=== PATIENT | male | born 1965 | race Two or more races ===

== ENCOUNTER 2017-12-14 09:38 | Emergency (ER) | payer MEDICAID ==
[~2017-12-14] VITALS: Ht 177.8 cm; Wt 88.9 kg
[~2017-12-14 09:38] MED LIST: INSLANTI SC; INSLISPI SC
[2017-12-14 10:13] LABS: Urine WBC None Seen /hpf (0 - 3)
[2017-12-14 10:32] LABS: Basophils # (auto) 0 uL; Basophils % (auto) 0.4 % (0.0-2.0); Eosinophils # (auto) 0.1 uL; Eosinophils % (auto) 0.8 % (0.0-7.0); Hematocrit 48.3 % (41.0-53.0); Hemoglobin 16.8 g/dL (13.5-17.5); Lymphocytes # (auto) 1.4 uL; Lymphocytes % (auto) 15.8 % (10.0-50.0); Mean Corpuscular Hemoglobin 29.4 pg (28.0-32.0); Mean Corpuscular Hgb Conc. 34.9 g/dL (32.0-36.0); Mean Corpuscular Volume 84.4 fL (80.0-100.0); Monocytes # (auto) 0.5 uL; Neutrophils # (auto) 6.6 uL; Platelet Count (auto) 191 10^3/uL (140-450); Red Blood Cells 5.72 10^6/uL (4.5-5.90); Red Cell Distribution Width 14.1 % (11.8-14.3); White Blood Cell 8.6 10^3/uL (4.4-10.8)
[2017-12-14 10:34] LABS: Urine Bacteria NONE SEEN /hpf (None Seen); Urine Blood TRACE /uL (Negative)
[2017-12-14 10:47] LABS: Alanine Aminotransferase 64 U/L (16-61); Albumin 3.4 g/dL (3.4-5.0); Alkaline Phosphatase 258 U/L (45-117); Anion Gap 9 (5-15); Aspartate Aminotransferase 38 U/L (15-37); BUN/Creatinine Ratio 17.2; Bilirubin, Total 0.4 mg/dL (0.2-1.0); Blood Urea Nitrogen 26 mg/dL (7-18); Calcium 8.5 mg/dL (8.5-10.1); Carbon Dioxide 29 mmol/L (21-32); Chloride 100 mmol/L (98-107); GFR African American 63 mL/min; GFR Non-African American 52 mL/min; Glucose 301 mg/dL (74-106); Magnesium 1.6 mg/dL (1.6-2.6); Potassium 4.2 mmol/L (3.5-5.1); Sodium 138 mmol/L (136-145); Total Protein 6.6 g/dL (6.4-8.2)
[2017-12-14] MEDS ORDERED: IBUPROFEN 600 MG TAB PO ONE (12:15)
[2017-12-14 13:35] VITALS: BP 139/95
== END 2017-12-14 13:49 | disposition home or self-care (01) ==
LOC: ER 09:38
DX: R07.89 Other chest pain (principal); E11.9 Type 2 diabetes mellitus without complications; Z79.4 Long term (current) use of insulin
CPT/HCPCS: 36415; 71046; 80053; 81001; 82962; 83735; 84484; 85025; 93005

== ENCOUNTER 2020-02-05 15:31 | Emergency (ER) | payer MEDICAID ==
[~2020-02-05] VITALS: Ht 170.2 cm; Wt 73.5 kg
[2020-02-05 17:02] LABS: Urine Bacteria NONE SEEN /hpf (None Seen); Urine Blood 3+ /uL (Negative); Urine Mucus FEW (None Seen); Urine Specific Gravity 1.016 (1.001-1.035); Urine WBC 541 /hpf (0 - 3); Urine WBC Clumps PRESENT /hpf (None Seen)
[2020-02-05 19:13] VITALS: BP 148/100
== END 2020-02-05 20:09 | disposition home or self-care (01) ==
LOC: ER 15:31
DX: N39.0 Urinary tract infection, site not specified (principal); E11.9 Type 2 diabetes mellitus without complications; E78.5 Hyperlipidemia, unspecified; I10 Essential (primary) hypertension
CPT/HCPCS: 81001

== ENCOUNTER 2020-12-07 22:43 | Inpatient (IN) | payer MEDICAID ==
[~2020-12-07] VITALS: Ht 167.6 cm; Wt 77.6 kg
[2020-12-07 23:19] LABS: Basophils # (auto) 0 10 ^3/uL (0-0.2); Basophils % (auto) 0.6 % (0.0-2.0); Eosinophils # (auto) 0 10 ^3/uL (0-0.8); Eosinophils % (auto) 0.5 % (0.0-7.0); Hematocrit 39.6 % (41.0-53.0); Hemoglobin 13.5 g/dL (13.5-17.5); Lymphocytes # (auto) 1.2 10 ^3/uL (0.4-5.4); Lymphocytes % (auto) 16.7 % (10.0-50.0); Mean Corpuscular Hgb Conc. 34.1 g/dL (32.0-36.0); Mean Corpuscular Volume 87.8 fL (80.0-100.0); Monocytes # (auto) 0.7 10 ^3/uL (0-1.3); Neutrophils # (auto) 5.3 10 ^3/uL (1.6-8.6); Neutrophils % (auto) 72.2 % (37.0-80.0); Nucleated Red Blood Cells % 0.1 %; Red Blood Cells 4.52 10^6/uL (4.5-5.90); White Blood Cell 7.4 10^3/uL (4.4-10.8)
[2020-12-07 23:38] LABS: Albumin 2.9 g/dL (3.4-5.0); Anion Gap 19 (5-15); Blood Urea Nitrogen 39 mg/dL (7-18); Calcium 8.4 mg/dL (8.5-10.1); Carbon Dioxide 25 mmol/L (21-32); Chloride 83 mmol/L (98-107); Potassium 3.1 mmol/L (3.5-5.1); Sodium 127 mmol/L (136-145)
[2020-12-07 23:41] LABS: Aspartate Aminotransferase 65 U/L (15-37); BUN/Creatinine Ratio 24.2; Bilirubin, Total 0.6 mg/dL (0.2-1.0); GFR African American 58 mL/min; GFR Non-African American 48 mL/min; Total Protein 5.8 g/dL (6.4-8.2)
[2020-12-07 23:43] LABS: Glucose 639 mg/dL (74-106)
[2020-12-07 23:47] LABS: Alanine Aminotransferase 108 U/L (16-61); Alkaline Phosphatase 356 U/L (45-117)
[2020-12-07 23:53] LABS: INR 0.92 (0.9-1.15); Partial Thromboplastin Time 21.7 sec (23.0-31.2)
[2020-12-08] MEDS ORDERED: InsuLIN REG 1unit/0.01ml Soln (100units/ml) ONE (00:15)
[2020-12-08] MEDS: ACCU-CHEK COMFORT CURVE STRIP VI SCH ×13 (00:25→20:23)
[2020-12-08] MEDS ORDERED: POTASSIUM CHL 20 Meq TABLET PO ONE (02:00)
[2020-12-08] MEDS: POTASSIUM CHL 20MEQ/100ML 100 ML IV SCH ×2 (02:04→04:10)
[2020-12-08 02:41] LABS: BUN/Creatinine Ratio 27.9; Calcium 8.4 mg/dL (8.5-10.1); Potassium 3.1 mmol/L (3.5-5.1)
[2020-12-08] MEDS ORDERED: MORPHINE SULFATE INJECTION 2 MG/ML SYRG IV PRN ×2 (04:30)
[2020-12-08] MEDS ORDERED: NITROGLYCERIN 0.4 MG SL TAB SL PRN (04:30)
[2020-12-08] MEDS ORDERED: InsuLIN R (HUMAN) 100 UNITS in SODIUM CHL 0.9% 99 ML IV SCH ×3 (04:30)
[2020-12-08] MEDS ORDERED: ONDANSETRON HCL 4 MG/2 ML VIAL IV PRN (04:30)
[2020-12-08] MEDS ORDERED: DEXTROSE (50%) 50ML SYRG IV PRN ×3 (04:30→19:15)
[2020-12-08] MEDS: INSULIN LANTUS (GLARGINE) 1 /0.01ml (100units/ml) SC SCH ×3 (05:37→22:01)
[2020-12-08 06:26] LABS: Magnesium 1.9 mg/dL (1.6-2.6); Phosphorus 3.1 mg/dL (2.5-4.90)
[2020-12-08 10:59] LABS: BUN/Creatinine Ratio 33.3; Potassium 3.4 mmol/L (3.5-5.1)
[2020-12-08] MEDS: ENOXAPARIN SOD 40 MG/0.4 ML SYRINGE SC SCH (11:10)
[2020-12-08] MEDS: PANTOPRAZOLE 40 MG/10 ML VIAL INJ IV SCH (11:10)
[2020-12-08] MEDS ORDERED: INSULIN LANTUS (GLARGINE) 1 /0.01ml (100units/ml) SC ONE ×2 (13:15)
[2020-12-08] MEDS: InsuLIN REG 1unit/0.01ml Soln (100units/ml) SC SCH (20:23)
[2020-12-08 23:35] VITALS: BP 138/86
[2020-12-09] MEDS: InsuLIN REG 1unit/0.01ml Soln (100units/ml) SC SCH ×6 (00:10→21:45)
[2020-12-09] MEDS: ACCU-CHEK COMFORT CURVE STRIP VI SCH ×6 (00:11→21:42)
[2020-12-09 03:03] VITALS: BP 138/68
[2020-12-09] MEDS ORDERED: ATOR10TA52 PO (03:17)
[2020-12-09] MEDS ORDERED: MULT-1018 PO (03:17)
[2020-12-09] MEDS ORDERED: INSLANTI SC (04:01)
[2020-12-09 05:00] VITALS: BP 111/65
[2020-12-09 05:15] LABS: Basophils # (auto) 0 10 ^3/uL (0-0.2); Basophils % (auto) 0.4 % (0.0-2.0); Eosinophils # (auto) 0.1 10 ^3/uL (0-0.8); Eosinophils % (auto) 1.1 % (0.0-7.0); Hematocrit 39.1 % (41.0-53.0); Hemoglobin 13.5 g/dL (13.5-17.5); Lymphocytes # (auto) 3.3 10 ^3/uL (0.4-5.4); Lymphocytes % (auto) 36.6 % (10.0-50.0); Mean Corpuscular Hemoglobin 29.6 pg (28.0-32.0); Mean Corpuscular Hgb Conc. 34.5 g/dL (32.0-36.0); Mean Corpuscular Volume 85.8 fL (80.0-100.0); Monocytes # (auto) 0.9 10 ^3/uL (0-1.3); Monocytes % (auto) 10.3 % (0.0-12.0); Neutrophils # (auto) 4.7 10 ^3/uL (1.6-8.6); Neutrophils % (auto) 51.6 % (37.0-80.0); Nucleated Red Blood Cells % 0.1 %; Red Blood Cells 4.56 10^6/uL (4.5-5.90); Red Cell Distribution Width 13.9 % (11.8-14.3); White Blood Cell 9.1 10^3/uL (4.4-10.8)
[2020-12-09 05:32] LABS: Calcium 7.9 mg/dL (8.5-10.1)
[2020-12-09 05:38] LABS: Albumin 2.2 g/dL (3.4-5.0); BUN/Creatinine Ratio 31.3; Bilirubin, Total 0.4 mg/dL (0.2-1.0); Magnesium 1.6 mg/dL (1.6-2.6); Total Protein 4.7 g/dL (6.4-8.2)
[2020-12-09 05:44] LABS: Potassium 2.8 mmol/L (3.5-5.1)
[2020-12-09] MEDS: INSULIN LANTUS (GLARGINE) 1 /0.01ml (100units/ml) SC SCH ×2 (06:35→21:43)
[2020-12-09] MEDS ORDERED: POTASSIUM CHL 20 Meq TABLET PO ONE ×2 (06:45→11:15)
[2020-12-09 09:00] VITALS: BP 127/78
[2020-12-09] MEDS: ENOXAPARIN SOD 40 MG/0.4 ML SYRINGE SC SCH (10:03)
[2020-12-09] MEDS: PANTOPRAZOLE 40 MG/10 ML VIAL INJ IV SCH (10:03)
[2020-12-09] MEDS ORDERED: INSU1INJ19 SC (12:28)
[2020-12-09] MEDS ORDERED: INSU100I44 SC (12:28)
[2020-12-09] MEDS ORDERED: DEXTROSE (50%) 50ML SYRG IV PRN (12:45)
[2020-12-09] MEDS ORDERED: MAGNESIUM SULFATE 1GM/100ML 100 ML IV ONE (12:45)
[2020-12-09 13:00] VITALS: BP 141/89
[2020-12-09 17:00] VITALS: BP 112/77
[2020-12-09] MEDS: FUROSEMIDE 20 MG/2 ML VIAL IV SCH (17:49)
[2020-12-09] MEDS: CARVEDILOL 3.125 MG TAB PO SCH (21:42)
[2020-12-09 22:00] VITALS: BP 132/84
[2020-12-10 05:00] VITALS: BP 115/71
[2020-12-10] MEDS: FUROSEMIDE 20 MG/2 ML VIAL IV SCH (06:02)
[2020-12-10] MEDS: InsuLIN REG 1unit/0.01ml Soln (100units/ml) SC SCH ×2 (06:29→11:30)
[2020-12-10] MEDS: ACCU-CHEK COMFORT CURVE STRIP VI SCH ×2 (06:31→11:30)
[2020-12-10 06:41] LABS: Albumin 2.1 g/dL (3.4-5.0); Magnesium 1.5 mg/dL (1.6-2.6); Potassium 3.7 mmol/L (3.5-5.1)
[2020-12-10 06:47] LABS: Alanine Aminotransferase 115 U/L (16-61); Alkaline Phosphatase 302 U/L (45-117); Aspartate Aminotransferase 176 U/L (15-37); Bilirubin, Direct < 0.1 mg/dL (0-0.2); Bilirubin, Total 0.3 mg/dL (0.2-1.0); Total Protein 4.5 g/dL (6.4-8.2)
[2020-12-10 09:00] VITALS: BP 121/79
[2020-12-10] MEDS: CARVEDILOL 3.125 MG TAB PO SCH (09:00)
[2020-12-10] MEDS: ENOXAPARIN SOD 40 MG/0.4 ML SYRINGE SC SCH (09:01)
[2020-12-10] MEDS ORDERED: LISINOPRIL 5 MG TAB PO SCH (10:00)
[2020-12-10] MEDS ORDERED: PANTOPRAZOLE 40 MG TAB PO SCH (10:00)
[2020-12-10] MEDS ORDERED: POTASSIUM CHL 20 Meq TABLET PO ONE (11:30)
[2020-12-10] MEDS ORDERED: CAR3125T PO (11:39)
[2020-12-10] MEDS ORDERED: INSLANTI SC (11:39)
[2020-12-10] MEDS ORDERED: FURO1TAB33 PO (11:39)
[2020-12-10] MEDS ORDERED: LISI-275 PO (11:39)
[2020-12-10] MEDS ORDERED: POTA1TAB61 PO (11:39)
[2020-12-10] MEDS ORDERED: MAGNESIUM SULFATE 1GM/100ML 100 ML IV SCH (12:00)
[2020-12-10] MEDS ORDERED: MAGNESIUM OXIDE 400 MG TAB PO ONE (12:15)
[2020-12-10 13:00] VITALS: BP 119/76
[2020-12-11 09:36] LABS: Hepatitis B Surface Antibody Negative
[2020-12-11 10:11] LABS: Hepatitis A Total Antibody Positive
[2020-12-11 12:22] LABS: Hepatitis B Core Total AB Negative; Hepatitis B Surface Antigen Negative (Negative); Hepatitis C Antibody Negative (Negative)
== END 2020-12-10 15:30 | disposition home health service (06) | DRG 194 ==
LOC: EDBD 22:43 → ER 22:54 → TELE 12-08 04:27 → TELE-WESTW 12-08 21:18
PROVIDERS: ADMIT Nurse Practitioner Acute Care; ATTEND Internal Medicine
DX: I11.0 Hypertensive heart disease with heart failure (principal); N17.0 Acute kidney failure with tubular necrosis; E11.10 Type 2 diabetes mellitus with ketoacidosis without coma; E87.1 Hypo-osmolality and hyponatremia; D68.59 Other primary thrombophilia; E11.40 Type 2 diabetes mellitus with diabetic neuropathy, unspecified; I50.31 Acute diastolic (congestive) heart failure; E87.6 Hypokalemia; E78.5 Hyperlipidemia, unspecified; K74.60 Unspecified cirrhosis of liver; R94.31 Abnormal electrocardiogram [ECG] [EKG]; Z20.822 Contact with and (suspected) exposure to COVID-19; Z79.4 Long term (current) use of insulin; Z82.49 Family history of ischemic heart disease and other diseases of the circulatory system; Z91.14 Patient's other noncompliance with medication regimen
CPT/HCPCS: 36415; 71045; 76705; 80048; 80053; 80061; 80076; 82962; 83036; 83735; 83880; 83930; 84100; 84132; 84443; 84484; 85025; 85379; 85610; 85730; 86704; 86706; 86708; 86803; 87340; 87426; 93005; 93306; 93925; 93970; 96365; 96366; 96367; 96372; 96375; 97163; C9113; G0378; J1815; J3480